=== PATIENT | male | born 1980 | race Hispanic/Latino ===

== ENCOUNTER 2017-09-07 11:37 | Emergency (ER) | payer OTHER ==
[~2017-09-07] VITALS: Ht 175.3 cm; Wt 76.2 kg
[~2017-09-07 11:37] MED LIST: FLUTICASONE PRO16 GM NASB; MONTELUKAST SOD10 M1 PO; NEXIUM40 M1 PO; PAZEO2.5 ML OU; XYZAL5 M1 PO
[2017-09-07 12:04] LABS: ABSOLUTE BASOPHIL COUNT 0 /CUMM (0.0-0.2); ABSOLUTE EOSINOPHIL COUNT 0 /CUMM (0.0-0.7); ABSOLUTE GRANULOCYTE CT 4.5 /CUMM (1.4-6.5); ABSOLUTE LYMPH COUNT 2.1 /CUMM (1.2-3.4); ABSOLUTE MONOCYTE COUNT 0.4 /CUMM (0.10-0.60); BASOPHIL % 0.5 % (0.0-2.0); EOSINOPHIL % 0.1 % (0-5); GRANULOCYTE % 64.6 % (42.2-75.2); HEMATOCRIT 42.1 % (42-52); MEAN CORPUSCULAR HGB 31.1 PG (27.0-31.0); MEAN CORPUSCULAR HGB CONC 34.2 G/DL (33.0-37.0); MEAN PLATELET VOLUME 6.7 FL (7.4-10.4); PLATELET COUNT 391 /CUMM (130-400); RBC DISTRIBUTION WIDTH 12.7 % (11.5-14.5); RED BLOOD CELL CT 4.62 /CUMM (4.70-6.10)
--- NOTE | 2017-09-07 12:32 | ED GENERAL ADULT ---
History of Present Illness General Chief Complaint: Dizziness Stated Complaint: DIZZINESS Source: patient Exam Limitations: no limitations Vital Signs & Intake/Output Vital Signs & Intake/Output Vital Signs Date Time Temp Pulse Resp B/P B/P Pulse O2 O2 Flow FiO2 Mean Ox Delivery Rate 09/07 1412 99.8 90 20 126/78 100 Room Air 09/07 1306 100.2 118 119/64 09/07 1204 101.2 09/07 1202 101.2 112 09/07 1140 102.9 118 18 141/97 99 Room Air Allergies Uncoded Allergies: DUST (SEVERE HAS EPI PEN 09/07/17) SEASONAL ALLERGYS (SEVERE HAS EPI PEN 09/07/17) Reconcile Medications Esomeprazole (Nexium) 40 MG CAPSULE.DR 1 CAP PO DAILY GI (Reported) Fluticasone Propionate 50 MCG/ACTUATION SPRAY.SUSP 2 SPRAY NASB DAILY ALLERGIES (Reported) Levocetirizine Dihydrochloride (Xyzal) 5 MG TABLET 1 TAB PO DAILY ALLERGIES ( Reported) Meclizine HCl 25 MG TABLET 1 TAB PO TIDPRN PRN Dizziness Montelukast Sodium 10 MG TABLET 1 TAB PO DAILY ALLERGIES (Reported) Olopatadine HCl (Pazeo) 0.7 % DROPS 1 DROP OU PRN ALLERGIES (Reported) Triage Note: PT STATES HE HAS BEEN VERY DIZZY SINCE FRIDAY. PT STATES THE ROOM IS SPINNING. PT STATES HE INCREASED HIS WATER CONSUMPTION. PT DIZZY ALL THE TIME, WORSE WHEN HE MOVES. PT STATES HE HAD NAUSEA LAST PAVEL. Triage Nurses Notes Reviewed? yes HPI: 37 YO M with PMH of seasonal allergies and GERD came with chief complain of dizziness for last 3 days. Patient reported that he started to experience dizziness as room spinning around his head 3 days back. Patient reported that initially it was intermittent and later on it became continuous. He also reported that he noticed having a roaring sound in his ears and feeling like his ears are clogged. He also reported having palpitation started yesterday. Patient reported associated nausea but he didn't throw up. He is feeling hot since last a this morning he had temperature. Yesterday he took ibuprofen for fever. He also reported having one episode of loose bowel movements yesterday. Patient denied chest pain, sick contact, vomiting, upper respiratory tract infection, trauma to ear, abdominal pain, constipation, syncope, rash, recent travel, dysuria and tic bite. Patient reported that his appetite has been decreased and he is not able to eat anything. But he is able to drink water. (Smith Wise MD) Past History Travel History Traveled to [place] past 21 day No Medical History Any Pertinent Medical History? none Surgical History Surgical History: none Psychosocial History What is your primary language Spanish Tobacco Use: Never used ETOH Use: occasional use Illicit Drug Use: denies illicit drug use Family History Hx Contributory? No (Smith Wise MD) Review of Systems Review of Systems Constitutional: Reports: chills, fever. Denies: weakness. EENTM: Denies: blurred vision, ear pain, ear redness, throat pain. Respiratory: Denies: cough, short of breath, sputum production, stridor. Cardiovascular: Reports: palpitations. Denies: chest pain, syncope. GI: Reports: diarrhea, nausea. Denies: abdominal pain, constipation, vomiting. Genitourinary: Reports: no symptoms. Musculoskeletal: Reports: no symptoms. Neurological/Psychological: Reports: no symptoms. (Smith Wise MD) Physical Exam Physical Exam General Appearance: well developed/nourished, no apparent distress, alert, awake Head: atraumatic, normal appearance Eyes: Bilateral: normal appearance, PERRL, EOMI. Ears, Nose, Throat: normal pharynx Neck: normal inspection, supple Respiratory: normal breath sounds, chest non-tender Cardiovascular: regular rate/rhythm Gastrointestinal: normal bowel sounds, soft Extremities: normal inspection Neurologic/Psych: no motor/sensory deficits, awake, alert, oriented x 3 Core Measures ACS in differential dx? No CVA/TIA Diagnosis: No Sepsis Present: No Sepsis Focused Exam Completed? No (Smith Wise MD) Progress Differential Diagnoses I considered the following diagnoses in my evaluation of the patient: Orthostatic hypotension, labyrinthitis, Mennieries disease and pneumonia Plan of Care: Orders Procedure Date/time Status LYME TITRE 09/07 1142 Active LACTIC ACID 09/07 1141 Complete URINALYSIS 09/07 1140 Complete TROPONIN LEVEL 09/07 1140 Complete COMPREHENSIVE METABOLIC PANEL 09/07 1140 Complete CBC WITHOUT DIFFERENTIAL 09/07 1140 Complete EKG 09/07 1140 Active Laboratory Tests 09/07/17 1441: Lactic Acid Cancelled 09/07/17 1347: Urine Color YEL, Urine Clarity CLEAR, Urine pH 6.5, Ur Specific Coram 1.010, Urine Protein NEG, Urine Ketones TRACE H, Urine Nitrite NEG, Urine Bilirubin NEG, Urine Urobilinogen 0.2, Ur Leukocyte Esterase NEG, Ur Microscopic EXAM NOT REQUIRED, Urine Hemoglobin NEG, Urine Glucose NEG 09/07/17 1151: Lactic Acid 1.7 09/07/17 1151: Anion Gap 15, Estimated GFR > 60, BUN/Creatinine Ratio 15.0, Glucose 97, Calcium 9.9, Total Bilirubin 1.4 H, AST 47, ALT 46, Alkaline Phosphatase 74, Troponin I < 0.01, Total Protein 8.4 H, Albumin 4.8, Globulin 3.6, Albumin/Globulin Ratio 1.3, Lyme Disease Antibody Pending 09/07/17 1140: CBC w Diff NO MAN DIFF REQ, RBC 4.62 L, MCV 91.0, MCH 31.1 H, MCHC 34.2, RDW 12.7, MPV 6.7 L, Gran % 64.6, Lymphocytes % 29.6, Monocytes % 5.2, Eosinophils % 0.1, Basophils % 0.5, Absolute Granulocytes 4.5, Absolute Lymphocytes 2.1, Absolute Monocytes 0.4, Absolute Eosinophils 0, Absolute Basophils 0 Initial ED EKG: normal axis, normal intervals, normal p-waves, normal QRS complex, normal sinus rhythm Comments: Possibly patient having peripheral vertigo. But his fever needs to be worked out. Patient didn't have any nystagmus or cerebellar symptoms. Considering patient was not eating or drinking anything and having nausea maybe patient having orthostatic hypotension. We will give him IV hydration and meclizine for dizziness. We will check chest x-ray for pneumonia and other workup for fever. His chest x-ray is negative for pneumonia. His WBC count is normal. Source of infection for gfever couldn't find. Patient is feeling better but it is seen and IV fluid. We'll discharge the patient with symptomatic treatment. Patient instructed to follow his primary care physician in one week. (Frandy QUACH,Mtz) Diagnostic Imaging: Viewed by Me: Radiology Read. Discussed w/RAD: Radiology Read. CXR Impression: PATIENT: CONSTANCE MCRAE PRESENT AGE: 37 PATIENT ACCOUNT NO: [id number] : 82 LOCATION: [facility] ORDERING PHYSICIAN: Ramon CORDOVA SERVICE DATE: 09/07/17-1143 EXAM TYPE: RAD - XRY-PORTABLE CHEST XRAY EXAMINATION: XR PORTABLE CHEST CLINICAL INFORMATION: Fever. Dizziness. COMPARISON: Chest done on 09/20/2013. TECHNIQUE: Portable frontal view of the chest was obtained. FINDINGS: Both lungs are symmetrically expanded, appear clear. The cardiomediastinal silhouette is within normal limit. There is no pleural effusion or pneumothorax present. Visualized upper abdomen is unremarkable. No significant change since prior study. IMPRESSION: No acute cardiopulmonary disease. DICTATED BY: Kervin Hudson MD DATE/TIME DICTATED:1303 ELECTRIC DRILL OPERATOR:OTF DATE/TIME TRANSCRIBED:09/07/171303 CONFIDENTIAL, DO NOT COPY WITHOUT APPROPRIATE AUTHORIZATION. <Electronically signed in Other Vendor System> SIGNED BY: Kervin Hudson MD 09/07/17 1312 (Elias Hill MD) Departure Departure Disposition: HOME OR SELF CARE Condition: Stable Clinical Impression Primary Impression: Orthostatic hypotension Secondary Impressions: Fever Referrals: Patient Has No Primary Care Dr (PCP/Family) Additional Instructions: Please follow up with your primary care physician in one week. Patient is advised to drink oral fluids to keep him hydrated. Patient is advised help if he experiences these kind of symptoms again please come to ED. Medication can cause drowsiness do avoid driving after taking the medication or machine work. Departure Forms: Customer Survey General Discharge Information Prescriptions: Current Visit Scripts Meclizine HCl 1 TAB PO TIDPRN PRN Dizziness #20 TAB (Smith Wise MD) Resident Co-Sign Statement Statement: ED Attending supervision documentation- [X] I saw and evaluated the patient. I have also reviewed all the pertinent lab results and diagnostic results. I agree with the findings and the plan of care as documented in the Resident's documentation. [X] I have reviewed the ED Record and agree with the Resident's documentation. [] Additions or exceptions (if any) to the Resident's note and plan are summarized below: [] (Sergio QUACH,Elias Miller) Critical Care Note Critical Care Note Critical Care Time: non-applicable (Smith Wise MD) ED Attending Observation Initial Observation Note: I have seen and personally examined CONSTANCE MCRAE on 09/07/17 at 1520. I agree with the current emergency department documentation. The disposition (admission or discharge) is uncertain at this time, he needs a period of observation for the following reason(s): The ED Nurse caring for this patient has been personally informed as to what the patient is being observed for. (Frandy QUACH,Smith)
--- NOTE | 2017-09-07 13:12 | RADIOLOGY REPORT ---
EXAMINATION: XR PORTABLE CHEST CLINICAL INFORMATION: Fever. Dizziness. COMPARISON: Chest done on 09/20/2013. TECHNIQUE: Portable frontal view of the chest was obtained. FINDINGS: Both lungs are symmetrically expanded, appear clear. The cardiomediastinal silhouette is within normal limit. There is no pleural effusion or pneumothorax present. Visualized upper abdomen is unremarkable. No significant change since prior study. IMPRESSION: No acute cardiopulmonary disease.
[2017-09-07 14:12] VITALS: BP 126/78
[2017-09-07] MEDS ORDERED: MECLIZINE HCL25 MG PO (14:57)
== END 2017-09-07 15:06 ==
LOC: ERH 11:37
PROVIDERS: Physician Assistant Medical
DX: I95.1 Orthostatic hypotension (principal); R50.9 Fever, unspecified; R42 Dizziness and giddiness
CPT/HCPCS: 86618; 71045; 81003; 93005; 93010; 96360; 96361; J3101